=== PATIENT | male | born 1945 | race Caucasian/White ===

== ENCOUNTER 2017-09-13 02:03 | Inpatient (IN) | payer OTHER ==
[~2017-09-13] VITALS: Ht 177.8 cm; Wt 112.5 kg
[~2017-09-13 02:03] MED LIST: ASPIRIN325 M2 PO; FERROUS SULFAT324 MG PO; NORVASC2.5 M1 PO; QUINAPRIL HCL40 M1 PO; TOPROL XL50 M1 PO; VYTORIN 10-401 EACH PO
--- NOTE | 2017-09-13 10:12 | Operative Report ---
Operative/Inv Procedure Report Surgery Date: 09/13/17 Name of Procedure: Right total knee replacement. Pre-Operative Diagnosis: Primary osteoarthritis right knee. Post-Operative Diagnosis: Same. Estimated Blood Loss: 50ml to 100ml Surgeon/Animal Care Attendant: Adams Lovelace MD/DARIN Bello Anesthesia: moderate sedation, block, Spinal Monitors: EKG/blood pressure/oxygen saturation IV Fluids: Lactated Ringer's Implants: [place] Triathlon PS Knee Components 1. Size 5 Posterior Stabilized Femoral Component. 2. Size 5 Tibial Baseplate 3. Size 5 x 9 mm Tibial Bearing Insert. 4. Size 33 x 9 mm symmetric Patella Component. Urine Output: Adequate Drains: None. Specimens: Resected portions of bone and cartilage and soft tissues sent to the lab for histopathological analysis and documentation. Microbiology: None. Tourniquet: 69 minutes@350 mmHg. Complications: None known. Condition: Stable. Operative Indication: The patient is a 71-year-old male with a long-standing history of bilateral knee pain secondary to advanced osteoarthritis. He underwent contralateral left total knee replacement surgery around 2012 and has done generally well ever since. He has subtotally continue to treat for his right knee symptoms. His arthritis symptoms were managed conservatively with medications and modalities and activity modification as well as injection therapies to the knee. A short trial of bracing and I believe physical therapy was also tried. The patient eventually reached the point where he felt that he did not want to continue with conservative nonoperative management. We did therefore discussed the risks and benefits and expected outcomes of continued attempts at nonoperative management which was felt to be not acceptable to the patient versus that of operative intervention with total knee arthroplasty. The patient was already familiar with knee arthroplasty in general having already undergone a contralateral left knee. All of the patient's questions were answered at length. He did wish to proceed with surgical intervention with total knee replacement and surgical consent was obtained. Operative/Procedure Note Note: DATE OF SERVICE: 09/14/2015 PREOPERATIVE DIAGNOSIS: Right knee osteoarthritis. POSTOPERATIVE DIAGNOSIS: Same PROCEDURE TITLE: Right total knee arthroplasty. SURGEON: Adams Lovelace M.D. GIANT TIRE REPAIRER: DARIN Bello FINDINGS: 1. Same as preop ANESTHESIA: Spinal plus right lower extremity regional block plus sedation. MONITORS: EKG, BP, O2 saturation, BIS. IV FLUIDS: Lactated Ringer's. IMPLANTS PLACED: [place] Triathlon PS Knee Components 1. Size 5 Posterior Stabilized Femoral Component. 2. Size 5 Tibial Baseplate 3. Size 5 x 9 mm Tibial Bearing Insert. 4. Size 33 x 9 mm symmetric Patella Component. URINE OUTPUT: Adequate. EBL: 50 ml. DRAINS: None. SPECIMEN: Resected bone and cartilage and soft tissues sent to the lab for histopathological analysis. TOURNIQUET: 69 minutes@350 mmHg. COMPLICATIONS: None known. PROCEDURE DESCRIPTION/FINDINGS: The patient underwent administration of a right lower extremity regional block in the preop staging area by the anesthesia team. He was then brought to the operating room and placed on the operating room table in the seated position with his legs off the side of the bed. A spinal anesthetic was then administered by the anesthesia team. The patient was then placed in the supine position and sedated. A dose of IV antibiotics was given for infection prophylaxis. 1 gram of tranexamic acid was given to help minimize acute blood loss during and immediately after surgery. A well-padded tourniquet was applied to the proximal portion of the right thigh. A Alberto catheter was placed in sterile fashion by the nursing staff. All bony prominences were well padded. The nonsterile portion of the Cohn leg fraser was secured to the OR table. The right foot and ankle were wrapped in a plastic barrier drape secured with tape. The right lower extremity was then prepped and draped in the usual sterile fashion. Bony landmarks and a planned midline anterior longitudinal skin incision were marked on the skin using a sterile marker. An [place]oban drape was then applied over and about the knee. The sterile plate for the Cohn leg fraser was secured in position on the OR table. The right leg, ankle and foot were then padded and secured to the sterile stirrup for the Cohn leg fraser. The extremity was then exsanguinated with an Esmarch bandage and the pneumatic tourniquet was inflated to a pressure of 350 mm Hg. The skin incision was made with a #10 scalpel blade. Sharp dissection continued down through the skin and subcutaneous tissues down to the level of the extensor mechanism. Full-thickness skin with subcutaneous tissue flaps were raised in a medial and lateral direction sharply with a combination of scalpel and Metzenbaum scissors. Hemostasis was achieved using electrocautery. A medial parapatellar arthrotomy was performed and extended proximally into the quadriceps tendon and distally to the medial side of the tibial tubercle. The patella was everted and a synovectomy about the patella was performed sharply with a scalpel. Osteophytes about the articular margin of the patella were excised using rongeurs. The retropatellar fat pad was excised sharply with a scalpel. A synovectomy of the supracondylar region at the anterior distal femur as well as about the medial and lateral gutters of the knee was also performed sharply, achieving hemostasis with electrocautery. Inspection of the patellofemoral articular cartilage showed full-thickness chondral loss at the trochlear groove as well as significant cartilage wear with fissuring and fibrillation at the patella. The patellar thickness measured 26 mm at the thickest portion of the patella using the patellar caliper. The sagittal saw was used to make a provisional transverse resection cut removing the patella facets and articular cartilage. The patella component sizing template was placed onto the cut surface of the patella. In this case we elected to go with a 33 mm diameter symmetric patellar component. This patellar component has a polyethylene thickness of 9 mm. We therefore resected some more patellar bone to equalize as best as possible the amount of bone resected to correlate with the thickness of the patella component. We therefore in this case resected patellar bone until we were left with a cut patella measuring 16 mm thick as measured with the patellar caliper. The patella drill guide was placed onto the cut surface of the patella and medialized slightly to help with patellofemoral tracking. The patellar component fixation holes were drilled through the drill guide with the appropriate drill. The metal protector for the cut surface of the patella was applied and the patella was subluxated laterally out of the way in to the lateral gutter. The knee was flexed and provisional excision of the medial and lateral menisci as well as the cruciate ligaments were performed sharply with a scalpel. Synovectomy of the intercondylar notch of the distal femur was performed sharply as well. Osteophytes about the intercondylar notch were taken down with rongeurs. The intramedullary drill was used to open the distal femur in a distal to proximal direction beginning roughly 1 cm anterior to the femoral attachment site of the posterior cruciate ligament. The intramedullary tami was attached to the femoral alignment guide which was set at 6 degrees of valgus and with the universal resection block also attached for a planned distal femoral resection of 10 millimeters. The intramedullary tami was impacted through the hole in the distal femur and advanced until the attached femoral alignment guide was resting against the most prominent portion of the distal femoral condyles. The femoral alignment guide was then secured in position with pins. The distal resection guide was pinned to the anterior femur. The intramedullary tami and femoral alignment guide were then removed leaving the distal resection guide in place. The modular capture for the sagittal saw was attached and the distal femoral resection cuts were made with the sagittal saw making sure to protect the soft tissues. The distal femoral resection guide was removed and the distal femoral resection cut was checked and was felt to be satisfactory. The femoral sizer was set for 3 degrees of external rotation and then it was placed in to position on the cut surface of the distal femur with the feet of the sizer slipped underneath the femoral condyles. Referencing the transepicondylar axis was not needed in this case to set the rotation of the sizer as there was no significant loss of the posterior femoral condyles. We determined the level of anterior bone resection and femoral sizing in this case to be best with a size 5 as checked with both the femoral stylus and the geno wing checked through both the medial and lateral femoral sizing slots. Once we determined the appropriate level for anterior bone resection, and consequently the proper femoral sizing, the peg drill to make holes for placement of the four in one cutting block was drilled through the EPI holes in the femoral sizing jig. The femoral sizer was removed, and the four in one cutting block was secured to the distal femur with the fixation pegs placed in to the previously drilled holes made through the femoral sizing jig. Retractors were placed for soft tissue protection and the distal femoral resection cuts were made sequentially beginning with the anterior femoral cut, followed by the posterior condyle cuts, followed by the anterior chamfer cut, and finally the posterior chamfer cut. Bone fragments following the cuts were removed. A size 5 PS box cutting guide was placed on to the cut distal femur and positioned optimally in a medial-lateral direction and then pinned in position. The box chisel was inserted in to the slot for the box cutting guide and then impacted with a mallet until it was fully seated. A sagittal saw was then used to make the bone cuts for the medial and lateral edges of the bone to be resected for the box cut. The box cut bone was then removed after freeing it from soft tissue attachments. The box cutting guide was removed and attention was turned to preparation of the proximal tibia. The pickle fork retractor was placed behind the upper central tibial plateau and used to lever the proximal tibia anteriorly. Final resection of the remnants of the medial and lateral menisci and the tibial intercondylar insertion site of the ACL was performed sharply with a scalpel. The intramedullary drill was used to open a hole in the intercondylar region in line with the tibial medullary canal. The tibial intramedullary alignment tami pre-assembled with the tibial resection guide set for a 3 degree posterior slope was placed into the tibial intramedullary canal and advanced until the tibial stylus for a 4 mm bone resection was resting at the lowest level of the medial compartment. The tibial resection guide was then pinned in position. The modular capture for the sagittal saw was attached and then the sagittal saw was used to make the proximal tibia resection cut, making sure to protect the soft tissues with retractors. The cut proximal tibia bone was removed after freeing it up from soft tissue attachments. Osteophytes along the upper margin of the tibia at the level of the bone resection were removed with rongeurs. The tibial tray sizing templates were placed on to the cut surface of the proximal tibia and used to determine the best size for the tibial tray component. In this case a size 5 sizing template fit very nicely. We next removed excess osteophytes from the posterior femoral condyles with an osteotome and removed the bone fragments with a curette. We next impacted a size 5 trial femoral component in to position and visually confirmed it to be well seated and in good position. We next placed a size 5 trial tibial template with a provisional 9 millimeters thickness trial tibial spacer on to the cut surface of the knee and reduced the knee. With the trial tibial and femoral components in place we then reduced the knee to check motion and stability and allow the tibial trial component to rotate naturally with reduction to its' proper orientation. Knee motion was checked and we did confirm the ability to achieve full knee extension. Knee flexion was checked and was found to be about 125-130 degrees. Varus and valgus stress testing was performed with the knee in extension and was felt to be acceptable. The upper anterior tibial cortical bone was scored with an electrocautery in line with the notches on the anterior aspect of the tibial trial to set proper rotation of the true tibial components when placed. A size 33 mm trial symmetric patellar component was placed and patellofemoral tracking was assessed. In this case we did not feel that a lateral release for patellofemoral tracking was necessary. The tibial trial component was then pinned in position after removing the trial spacer. An appropriate size keel punch guide was placed in to the tibial trial component and then the keel punch was impacted using a mallet. The keel punch and guide were removed as was the tibial trial template. The trial femoral and patellar components were also removed. Attention was now directed towards placement of the true components. All cut bony surfaces as well as the soft tissues about the bone were copiously irrigated with a pulsatile lavage system. The irrigated cut surfaces of the bone were dried with lap pads. While this was being performed, the proper sized true femoral, tibial, and patellar components for implantation were opened and cement was mixed per protocol. Once the cement was set to the proper consistency, attention was directed towards cementing the true components in position. Beginning with the tibial component we applied some cement to the cut upper surface of the proximal tibia and also injected some cement down in to the intramedullary canal through the keel punch slot made earlier. The cement on the upper tibia was manually pressed and massaged in to the bone for better interdigitation. A thin layer of cement was also applied to the back side of a size 5 tibial tray component. The tibial tray component was then impacted in to position on to the cut surface of the proximal tibia making sure that the orientation of the keel of the component matched the keel slot cut in to the proximal tibia. Excess cement was removed from around the margins of the proximal tibia with curettes, and pickups and scalpels. The tibial tray was further impacted and further extruded cement from the margins of the base plate was again removed in similar fashion. We next turned our attention to the distal femur where cement was applied with a cement gun and then interdigitated manually in similar fashion to the bone of the anterior and distal femur, leaving the posterior femoral condyle cuts free from cement for the moment. A thin layer of cement was applied to the posterior femoral condyles of a size 5 femoral component and then the femoral component was impacted in to position. In similar fashion as before, excess cement was removed, the femoral component was impacted further and additional excess cement was once again removed. We next inserted a 9 mm thick size 5 tibial bearing component and impacted it until it was locked within the tibial tray component. We checked fixation of the bearing component within the tibial tray and were satisfied. After making sure that there was no bone or cement fragments or any other obstruction to reduction , we reduced the tibial component to the femoral component and maintained the knee fully extended while the fixation cement set up. We next turned our attention to placement of the patellar component. Once again cement was applied and then manually interdigitated in to the fibers of the cut surface of the patella as well as in to the fixation holes for the patellar component. A thin layer of cement was applied to the back surface of a size 33 mm symmetric patellar component and then the patellar component was placed on to the cut surface of the patella with the pegs for the patellar component properly positioned in to the peg holes in the bone. A patellar compression clamp was placed to temporarily secure the patellar component in position. Once again all excess cement was removed and the cement was allowed to set up. The knee was put through final range of motion and stability testing, all of which was felt to be acceptable. Patellofemoral tracking was checked again and felt to be satisfactory. With the true components now implanted our attention was directed towards closure. The knee joint and all prosthetic components as well as the soft tissues were irrigated with a pulsatile lavage. Another gram of tranexamic acid was infused by the anesthesia staff prior to dropping the tourniquet. The tourniquet was deflated after tourniquet time of 69 minutes. Hemostasis was achieved with electrocautery and manual pressure. A large [place] drain was placed into the knee joint and brought out through the skin over the anterolateral distal thigh. The drain tubing was cut to a proper length and left within the knee joint. The arthrotomy was repaired using size #1 Vicryl sutures placed in interrupted [id number] fashion. The soft tissues were irrigated once again with the pulsatile lavage. The subcutaneous tissues were closed in layers using #1 Vicryl suture placed in interrupted buried fashion in the deeper subcutaneous tissues. The more superficial subcutaneous tissues were repaired using 2-0 Vicryl placed in interrupted buried fashion as well. The skin margins were then approximated using a skin stapler. The Hemovac drain was connected to the tubing. The wounds were all washed and dried. Adaptic dressing was placed over the Steri-Strips line and about the Hemovac drain tubing exit site in the skin. Gauze dressings followed by abdominal pads were applied over the wound and the Hemovac drain. Webril cotton padding was applied about the knee over the dressings. The extremity was then wrapped with [place] bandages from the toes distally to the upper thigh proximally to hold the dressings in place and to also provide some compression to the knee joint and to the extremity in general postoperatively to minimize swelling of the knee and hopefully minimize venous pooling in the extremity which might result in a DVT. The patient was awakened from his sedation and then transferred to a hospital bed and brought to the PACU having tolerated the procedure well. Findings: As per preop. Discharge Disposition: PACU
[2017-09-13 12:04] VITALS: BP 124/74
[2017-09-13 14:28] VITALS: BP 130/80
--- NOTE | 2017-09-13 16:16 | PN- Orthopedic ---
Subjective Subjective: POC feeling well, walked with pt, some pain but manageable. sandy diet, no n/v/cp/ sob. +up via mane Objective Vital Signs and I&Os Vital Signs Date Time Temp Pulse Resp B/P B/P Pulse O2 O2 Flow FiO2 Mean Ox Delivery Rate 09/13 1428 97.7 63 20 130/80 100 Room Air 09/13 1204 97.3 57 20 124/74 95 Room Air Intake & Output 09/13 1600 09/13 0800 09/13 0000 09/12 1600 09/12 0800 09/12 0000 Intake Total 390 Output Total 740 Balance -350 Intake, IV 150 Intake, Oral 240 Output, Other 100 Output, Urine 640 Patient 246 lb Weight Weight Bed scale Measurement Method Physical Exam: gen- nad card- rrr pulm- no audible wheeze abd- soft nt ext- rle dressed in jolie, cdi. ice in place over knee. palp dp/pt. feet warm, gross sensation intact, calves soft nt. gross dorsi/plantar flexion intact Assessment/Plan Assessment/Plan A- POD0 sp R TKR, with minimal postop pain, oob with pt ambulating in halls, stable P- eliquis 2.5bid, alps celebrex prn pain meds oob, pt, wbat dc mane in am ada diet as tolerated brianna montes de oca dc planning will dw attending Core Measures Venous Thromboembolism VTE Risk Factors Surgery No Mechanical VTE Prophylaxis d/t N/A MechProphylax Ordered No VTE Pharm Prophylaxis d/t NA PharmProphylax ordered
[2017-09-13 17:10] VITALS: BP 124/72
[2017-09-13 20:45] VITALS: BP 146/70
[2017-09-14 05:53] VITALS: BP 142/86
--- NOTE | 2017-09-14 06:52 | PN- Orthopedic ---
Subjective Subjective: POD#1 S/P RIGHT TKA NO MAJOR ISSUES OVERNIGHT KNEE PAIN CONTROLLED WITH PO PERCOCET DENEIS CP, SOB, NO N+V WITH DIET Objective Vital Signs and I&Os Vital Signs Date Time Temp Pulse Resp B/P B/P Pulse O2 O2 Flow FiO2 Mean Ox Delivery Rate 09/14 0553 98.2 75 22 142/86 94 Room Air 09/13 2045 98.5 74 16 146/70 94 / 1710 97.9 70 16 124/72 94 Room Air 09/13 1600 Room Air 09/13 1428 97.7 63 20 130/80 100 Room Air 09/13 1204 97.3 57 20 124/74 95 Room Air Intake & Output 09/14 0809/14 0000 09/13 1600 09/13 0800 09/13 0000 09/12 1600 Intake Total 700 400 390 Output Total 400 1350 740 Balance 300 -950 -350 Intake, IV 600 300 150 Intake, Oral 100 100 240 Output, Other 100 Output, Urine 400 1350 640 Patient 253 lb 246 lb Weight Weight Bed scale Measurement Method Physical Exam: CV: RRR LUNGS: CLEAR ABD: SOFT, +BS EXT: DRSG DRY DISTAL CMS INTACT MARIE: CLEAR URINE Assessment/Plan Assessment/Plan ORTHO STABLE PLAN ELIQIUS FOR DVT PROPHYLAXIS D/C MARIE AND IVF OOB WITH PT, WBAT RIGHT LE TITRATE PAIN MEDS HOME D/C PLANNING Core Measures Venous Thromboembolism VTE Risk Factors Surgery No Mechanical VTE Prophylaxis d/t N/A MechProphylax Ordered No VTE Pharm Prophylaxis d/t NA PharmProphylax ordered
--- NOTE | 2017-09-14 07:00 | Patient Discharge Instructions ---
Discharge Instructions General Discharge Information You were seen/treated for: RIGHT KNEE PRIMARY OSTEOARHTRITIS You had these procedures: RIGHT TOTAL KNEE ARTHROPLASTY Watch for these problems: INCREASED WOUND DRAINAGE/REDNESS, TEMP >101.5, INCREASED PAIN WITH AMBULATION Call Surgeon to remove: [place] No bath, but you may shower: Yes Other wound care: DAILY DRY STERILE DRESSING, KEEP WOUND CLEAN AND DRY Special Instructions: you will need to be on eliquis for prevention of blood clots. take as directed for 1 month. Diet Continue normal diet: Yes Activity Activity Limited to: Weight bear as tolerated Other activity limits: OOB PER PT INSTRUCTION Acute Coronary Syndrome Inclusion Criteria At DC or during hospital stay patient has or had the following: ACS DIAGNOSIS No Discharge Core Measures Meds if any: Prescribed or Continued at Discharge Meds if any: NOT Prescribed or Continued at Discharge Congestive Heart Failure Inclusion Criteria At DC or during hospital stay patient has or had the following: CHF DIAGNOSIS No Discharge Core Measures Meds if any: Prescribed or Continued at Discharge Meds if any: NOT Prescribed or Continued at Discharge Cerebrovascular accident Inclusion Criteria At DC or during hospital stay patient has or had the following: CVA/TIA Diagnosis No Discharge Core Measures Meds if any: Prescribed or Continued at Discharge Meds if any: NOT Prescribed or Continued at Discharge Venous thromboembolism Inclusion Criteria VTE Diagnosis No VTE Type NONE VTE Confirmed by (Test) NONE Discharge Core Measures - Per Current guidelines, there needs to be overlap - treatment for the first 5 days of Warfarin therapy. - If discharged on Warfarin prior to 5 days of - overlap therapy, the patient will need to be - assessed for post discharge needs including - *Post discharge parental anticoagulation - *Warfarin and/or parental anticoagulation education - *Follow up date to check INR post discharge At least 5 days overlap therapy as Inpatient No Meds if any: Prescribed or Continued at Discharge Note: Overlap Therapy is Warfarin and Anticoagulant Meds if any: NOT Prescribed or Continued at Discharge
[2017-09-14] MEDS ORDERED: DOCUSATE SODIU100 M3 PO (07:12)
[2017-09-14] MEDS ORDERED: ELIQUIS2.5 M1 PO (07:12)
[2017-09-14] MEDS ORDERED: PERCOCET 5-3251 EACH PO (07:12)
--- NOTE | 2017-09-14 07:19 | Discharge Summary ---
Visit Information Visit Dates Admission Date: 09/13/17 Discharge Date: 09/15/17 Hospital Course Course Attending Physician: Adams Lovelace MD Primary Care Physician: Selvin Hayes DO Hospital Course: Mr. De La Garza is a 71-year-old male who was taken to the operating room on 2017 for right total knee arthroplasty for primary right knee osteoarthritis. He tolerated procedure well and is transferred to the floor. He was out of bed with physical therapy and after completion of his therapy was cleared for safety for discharge. Also during his hospital stay he was placed on Eliquis 2.5 mg twice daily for DVT prophylaxis and medication was titrated to Percocet by mouth for pain control. His diet was advanced as tolerated and his events of hospital stay otherwise unremarkable. Allergies: Coded Allergies: No Known Allergies (09/02/17) Significant Procedures: Right total knee arthroplasty Disposition Summary Disposition Principal Diagnosis: Right knee primary osteoarthritis Additional Diagnosis: sp R TKA Discharge Disposition: home health services Discharge Instructions General Discharge Information Code Status: Full Code Patient's Diet: Regular diet Patient's Activity: May be out of bed weightbearing as tolerated right lower extremity Follow-Up Instructions/Appts: Call Dr. Lovelace's office for increased right knee wound drainage/redness, temperature greater than 101.5, increased right knee pain with ambulation. Call office for follow-up in 2 weeks for staple removal. Medications at Discharge Discharge Medications: Continue taking these medications: Amlodipine (Norvasc) 2.5 MG TABLET 1 Tablet ORAL DAILY Aspirin (Aspirin*) 325 MG TABLET 1 Tablet ORAL DAILY Ezetimibe/Simvastatin (Vytorin 10-40 MG Tablet) 10 MG-40 MG TABLET 1 Tablet ORAL DAILY Metoprolol Succ XL (Toprol Xl) 50 MG TAB Milligram ORAL DAILY Quinapril HCl (Quinapril HCl) 40 MG TABLET 1 Tablet ORAL DAILY Ferrous Sulfate (Ferrous Sulfate) 324 MG (65 MG IRON) TABLET. 1 Tablet ORAL DAILY Start taking the following new medications: Apixaban (Eliquis) 2.5 MG TABLET 1 Tablet ORAL TWICE DAILY Qty = 60 No Refills Docusate Sodium (Docusate Sodium) 100 MG CAPSULE 1 Tablet ORAL TWICE DAILY Qty = 30 No Refills Oxycodone HCl/Acetaminophen (Percocet 5-325 MG Tablet) 5 MG-325 MG TABLET 1-2 Tablet ORAL EVERY 4-6 HOURS as needed for PAIN SCALE 4-6 (MODERATE) Qty = 36 No Refills Copies To: Adams Lovelace MD
[2017-09-14 08:28] LABS: ABSOLUTE BASOPHIL COUNT 0 /CUMM (0.0-0.2); ABSOLUTE EOSINOPHIL COUNT 0 /CUMM (0.0-0.7); ABSOLUTE GRANULOCYTE CT 8.4 /CUMM (1.4-6.5); ABSOLUTE LYMPH COUNT 1.1 /CUMM (1.2-3.4); ABSOLUTE MONOCYTE COUNT 1.1 /CUMM (0.10-0.60); BASOPHIL % 0.1 % (0.0-2.0); EOSINOPHIL % 0.3 % (0-5); GRANULOCYTE % 78.8 % (42.2-75.2); HEMATOCRIT 42.9 % (42-52); MEAN CORPUSCULAR HGB 29.2 PG (27.0-31.0); MEAN CORPUSCULAR HGB CONC 34.2 G/DL (33.0-37.0); MEAN CORPUSCULAR VOLUME 85.4 FL (80.0-94.0); MEAN PLATELET VOLUME 8.4 FL (7.4-10.4); PLATELET COUNT 256 /CUMM (130-400); RBC DISTRIBUTION WIDTH 14.6 % (11.5-14.5); RED BLOOD CELL CT 5.02 /CUMM (4.70-6.10); WHITE BLOOD CELL COUNT 10.7 /CUMM (4.8-10.8)
[2017-09-14 09:54] VITALS: BP 140/82
[2017-09-14 14:00] VITALS: BP 142/80
[2017-09-14 21:18] VITALS: BP 144/80
[2017-09-15 05:53] VITALS: BP 158/86
--- NOTE | 2017-09-15 07:20 | PN- Student ---
Benito Cullen 09/15/17 0704: Subjective Subjective: Mild Left knee pain. ambulated/stairs with PT, went well. no chest pain, no shortness of breath, no calf pain. no abdominal pain. No nausea, no vomitting. Objective Objective: Vitals: Temp: 98.4 Pulse Rate: 89 Respiratory Rate: 20 BP: 158/86 Pulse Ox: 95 Room air I/O's I: 240 oral 8 hours/ 1330 oral 24 hrs, 20 IV 8hr/330 IV 24hr O: 250 urine 8hr/ 600 urine 24hr Imaging: none Physical Exam: General: No acute distress, alert and oriented Pulm: clear to auscultation bilaterally Cardio: RRR Abdomen: soft,+bowel sounds, nontender Extremities: calves soft and nontender bilaterally, gross sensation intact bilaterally, 2+DP/PT pulses bilaterally. Dorsi/Plantar flexion 5+ strenght bilaterally. Straight leg raise 3+ strenght with right leg and 5+ strenght with left. Dressing intact, yecenia in place with mild serosanguinous discharge. No induration, no erythema, surgical site nontender. Results Results: Laboratory Tests 09/14/17 0705: Anion Gap 12, Estimated GFR > 60, BUN/Creatinine Ratio 15.6, CBC w Diff NO MAN DIFF REQ, RBC 5.02, MCV 85.4, MCH 29.2, MCHC 34.2, RDW 14.6 H, MPV 8.4, Gran % 78.8 H, Lymphocytes % 10.1 L, Monocytes % 10.7 H, Eosinophils % 0.3, Basophils % 0.1, Absolute Granulocytes 8.4 H, Absolute Lymphocytes 1.1 L, Absolute Monocytes 1.1 H, Absolute Eosinophils 0, Absolute Basophils 0 Microbiology 07/10 0800 URINE ROUT: Urine Culture - RES Assessment/Plan Assessment: 71 year old male POD 2 s/p right total knee replacement. Doing well with appropriate post op pain and clearance from PT. Plan: Dressing change today WBAT Continue home meds Apixaban for DVT prophylaxis Percocet, morphine prn pain Zofran prn nausea Plan for DC Discuss with preceptor Adalid Marquez 09/15/17 0779: Resident Review Statement Resident Statement: examined this patient Other Findings: agree with above. stable for DC home today w [facility] services.
[2017-09-15 09:51] VITALS: BP 158/86
--- NOTE | 2017-09-15 11:55 | RADIOLOGY REPORT ---
EXAMINATION: XR KNEE, RIGHT CLINICAL INFORMATION: Post arthroplasty radiographs COMPARISON: None TECHNIQUE: Two views of the right knee. FINDINGS: Patient is status post cemented right total knee arthroplasty. Components are in expected position/alignment. No fracture. Subcutaneous emphysema and soft tissue yecenia. Vascular calcifications. IMPRESSION: Unremarkable post arthroplasty radiographs of the right knee.
== END 2017-09-15 13:56 | disposition home health service (06) | DRG 470 ==
LOC: SDA 02:03 → ENRESERV 10:48 → ENTRNSPT 11:12 → EDTRNSPT 11:27 → EDTRNSPTSTS 11:27 → 2NA 11:32 → CMPTRNSPT 11:48 → ENPENDDIS 09-15 07:34 → 2NA 09-15 13:56
PROVIDERS: Physician Assistant Surgical
PROC: 0SRC0J9 Replacement of Right Knee Joint with Synthetic Substitute, Cemented, Open Approach (ICD-10-PCS; principal; 2017-09-13)
DX: M17.11 Unilateral primary osteoarthritis, right knee (principal); I25.10 Atherosclerotic heart disease of native coronary artery without angina pectoris; I45.10 Unspecified right bundle-branch block; I10 Essential (primary) hypertension; E78.5 Hyperlipidemia, unspecified
CPT/HCPCS: 2NAP; 36592; 73560-RT; 82436; 87086; 97110-GO; 97116-GO; 97161-GP; 97530-GO; C1713; C9290; J1100; J2405; J3370; J7040